=== PATIENT | female | born 1985 | race Caucasian/White ===

== ENCOUNTER → 2017-01-23 | Outpatient (CLI) | payer OTHER ==
[~2017-01-23] MED LIST: AMOXICILLIN PO; AMOXIL500 M1 PO; PRILOSEC PO; PRILOSEC20 MG PO
--- NOTE | ~2017-01-23 | US5 ---
[facility] A Service of [facility] & [facility] RADIOLOGY TEXT RESULTS PATIENT: NAOMIE EPPS LOCATION: SGUS : 85 UNIT #: [id number] AGE: [address]: NICOLE KILLIAN APRN SEX: F ORDER DR: [id number] [address] [address] [id number] P MR#: [id number] Acc #: [id number] NAME: NAOMIE EPPS : 1985 SEX: F STUDY DATE/TIME: 01/23/2017 10:53 UNIT: SG ROOM: STUDY DESCRIPTION: US Abdominal Complete Attending Physician: Nicole Killian Aprn Ordering Physician: Nicole Killian Aprn Primary Care Physician: [facility] MEDICAL IMAGING REPORT This report is preliminary unless electronic signature is present. EXAM Abdominal ultrasound complete, 01/23/2017 HISTORY Epigastric abdominal pain for 2 months. Pain in mid to lower abdomen. FINDINGS The liver is homogeneous in echotexture and demonstrates no cystic or solid mass lesions. The intra and extrahepatic bile ducts are not dilated. The gallbladder is surgically absent as per patient history. The common duct measures 3 mm. The pancreas is poorly visualized due to overlying bowel gas. The spleen measures 8 cm in greatest diameter. Visualized portions of the abdominal aorta and inferior vena cava are within normal limits. The kidneys are normal bilaterally. IMPRESSION 1. Surgical absence of the gallbladder. 2. Poor visualization of the pancreas due to overlying bowel gas. Dictated by... Gómez Ge M.D. THIS IS AN ELECTRONICALLY VERIFIED REPORT Gómez Ge M.D. at 01/24/2017 8:01 AM KARIN/sasha TD: 01/23/2017 23:40 JOB #: [id number] MEDICAL IMAGING REPORT
== END | disposition home or self-care (01) ==
LOC: SGUS 09:33
DX: R10.13 Epigastric pain (principal); N92.6 Irregular menstruation, unspecified; Z90.49 Acquired absence of other specified parts of digestive tract
CPT/HCPCS: 76700

== ENCOUNTER → 2017-06-06 | Outpatient (CLI) | payer OTHER ==
--- NOTE | ~2017-06-06 | US98 ---
[facility] A Service of [facility] & [facility] RADIOLOGY TEXT RESULTS PATIENT: NAOMIE EPPS LOCATION: SGUS : 85 UNIT #: [id number] AGE: [address]: Naina Kim SEX: F ORDER DR: [id number] [address] [address] [id number] O MR#: [id number] Acc #: [id number] NAME: NAOMIE EPPS : 1985 SEX: F STUDY DATE/TIME: 06/06/2017 9:48 UNIT: SG ROOM: STUDY DESCRIPTION: US Pelvic Non-OB Complete Attending Physician: Naina Kim Referring Physician: Naina Kim Ordering Physician: Naina Redman A.P.R.N. Primary Care Physician: Naina Kim MEDICAL IMAGING REPORT This report is preliminary unless electronic signature is present. EXAM Transabdominal and transvaginal pelvic ultrasound, 06/06/2017 HISTORY Pelvic pain for 6 months, fatigue with irregular periods. FINDINGS Transabdominal and transvaginal pelvic ultrasound was performed. Endovaginal ultrasound was performed for attempted better visualization of the adnexal structures. The bladder is normal in appearance. Uterus measures 8.6 cm craniocaudal x 4.6 cm AP by 5 cm transverse. Endometrial stripe is somewhat thickened measuring 1.9 cm. Clinical correlation is recommended. Exam is limited as the left ovary was not seen on either transabdominal or transvaginal portions of the examination. The right ovary measured 2.9 cm x 2 cm x 2.5 cm. No adnexal mass was seen. Trace free fluid is seen in the pelvis. IMPRESSION 1. Somewhat thickened endometrial stripe measuring 1.9 cm. Clinical correlation is recommended. 2. Exam limited as the left ovary was not identified on either transabdominal or transvaginal portions of the examination. No adnexal mass was seen. Dictated by... Gómez Ge M.D. THIS IS AN ELECTRONICALLY VERIFIED REPORT Gómez Ge M.D. at 06/07/2017 2:18 PM KRT/sasha [facility] A Service of [facility] & [facility] RADIOLOGY TEXT RESULTS PATIENT: NAOMIE EPPS LOCATION: [facility] : 85 UNIT #: [id number] AGE: [address]: Naina Kim SEX: F ORDER DR: TD: 06/07/2017 04:03 JOB #: [id number] MEDICAL IMAGING REPORT Page 1 of 1
== END | disposition home or self-care (01) ==
LOC: SGUS 09:41
DX: R10.9 Unspecified abdominal pain (principal); R93.8 Abnormal findings on diagnostic imaging of other specified body structures
CPT/HCPCS: 76830; 76856